=== PATIENT | female | born 1990 | race African-American/Black ===

== ENCOUNTER 2022-08-23 10:43 | Outpatient (CLI) | payer OTHER | END 2022-08-23 10:44 | disposition home or self-care (01) | LOC: BICULT 10:43 | PROVIDERS: ATTEND Family Medicine | DX: O09.892 Supervision of other high risk pregnancies, second trimester (principal) | CPT/HCPCS: 76805 ==

== ENCOUNTER 2024-05-15 14:03 | Outpatient (CLI) | payer MEDICAID | END 2024-05-15 14:04 | disposition home or self-care (01) | LOC: BICULT 14:03 | DX: Z34.82 Encounter for supervision of other normal pregnancy, second trimester (principal); Z3A.20 20 weeks gestation of pregnancy | CPT/HCPCS: 76805 ==

== ENCOUNTER 2024-08-07 18:50 | Emergency (ER) | payer MEDICAID | END 2024-08-07 22:28 | disposition admitted as inpatient to this hospital (09) | LOC: ERS 18:50 | DX: O99.891 Other specified diseases and conditions complicating pregnancy (principal); O99.332 Smoking (tobacco) complicating pregnancy, second trimester; M79.10 Myalgia, unspecified site; F17.210 Nicotine dependence, cigarettes, uncomplicated; Z3A.01 Less than 8 weeks gestation of pregnancy; V43.52XA Car driver injured in collision with other type car in traffic accident, initial encounter; Y93.89 Activity, other specified | CPT/HCPCS: 99284 ==

== ENCOUNTER 2024-08-27 09:59 | Day surgery (SDC) | payer MEDICAID ==
[~2024-08-27 09:59] MED LIST: Acetaminophen 500 MG TAB PO SCH; Iron Sucrose Complex 500 MG in Sodium Chloride 0.9% 250 ML 250 ML IVPB SCH
[2024-08-27] MEDS ORDERED: Acetaminophen 500 MG TAB ONE (10:10)
[2024-08-27] MEDS: Acetaminophen 500 MG TAB PO SCH (10:12)
[2024-08-27] MEDS: Iron Sucrose Complex 500 MG in Sodium Chloride 0.9% 250 ML IVPB SCH (11:00)
[2024-08-27 12:35] VITALS: TEMP 97.9
[2024-08-27 16:04] VITALS: BP 137/80
== END 2024-08-27 16:04 | disposition home or self-care (01) ==
LOC: ONC/OP 09:59
PROVIDERS: ATTEND Family Medicine
DX: O99.019 Anemia complicating pregnancy, unspecified trimester (principal); Z3A.00 Weeks of gestation of pregnancy not specified
CPT/HCPCS: 96365; 96366; J1756; J7050